=== PATIENT | male | born 1960 | race Caucasian/White ===

== ENCOUNTER 2021-05-31 19:26 | Inpatient (IN) ==
--- NOTE | 2021-05-31 20:09 | Emergency Department Note ---
History of Present Illness General Chief complaint: Dizziness Stated complaint: LIGHT HEADED, OFF BALANCE, DIZZY Time Seen by Provider: 05/31/21 19:46 Source: patient History of Present Illness Provider complaint: Lightheadedness, dizziness and headache Onset (ago): day(s) Location: head Severity: moderate Pain Consistency: + intermittent Maximum Pain Intensity: 4 Quality: + other (Feeling like he is half drunk) Relieved By: + none Associated symptoms: + cough (1 week productive cough), + headaches and + other (Numbness to the left hand); no chest pain, no fever/chills, no nausea/vomiting, no shortness of breath or no weakness This is a 60-year-old male with no significant past medical history presenting with dizziness and headache. The patient states it started while he was at work 3 days ago. He has had intermittent episodes since then. He states he gets a strobe light effect in the left eye. He has a headache on top of his head and then he feels dizzy. He describes his dizziness as feeling half drunk and off balance. He has some slight vertigo with it and he is lightheaded. He states that another episode started today at approximately 12:30 PM. He states his headache is very mild today. He no longer has a strobe light feeling. He does have some numbness to the left hand but no weakness to his extremities. He denies any double vision or loss of vision. He has no trouble swallowing. He denies any chest discomfort or pain, shortness of breath, fever, vomiting, abdominal pain, diarrhea, loss of taste or smell. He does have a productive cough for the past week. He has not been vaccinated for the Covid 19 virus. He does state that he thinks he had it back in [facility] of last year when he felt cold and had fatigue. Home Medications Medication Instructions Recorded Confirmed Type No Known Home Medications 05/31/21 05/31/21 History Allergies Allergy/AdvReac Type Severity Reaction Status Date / Time bee venom protein (honey bee) Allergy Severe Hives Verified 05/31/21 20:01 Past Med/Surg History Medical History (Updated 06/01/21 @ 00:39 by Ajay Roberson MD) No pertinent past medical history Social History (Updated 05/31/21 @ 20:05 by Ajay Roberson MD) Smoking Status: Former smoker Age Quit Using Tobacco: 52; Preferred Language: Sammarinese Feels Safe at Home: Yes Review of Systems See HPI for pertinent positives & negatives. and A total of 10 systems reviewed and were otherwise negative Physical Exam Vital Signs Vital Signs - 24 hr 05/31/21 19:37 05/31/21 19:49 05/31/21 20:04 Temperature 36.4 C L Temperature Source Temporal Artery Scan Pulse Rate 120 H 120 H 118 H Pulse Rate [Right] Pulse Rate from SpO2 Sensor 120 H 118 H Pulse Rhythm [Right] Pulse Strength [Right] Respiratory Rate 18 19 20 Respiratory Effort / Characteristics Respiratory Depth Normal Blood Pressure 165/97 H 166/118 H 167/105 H Blood Pressure [Right Arm] Blood Pressure Mean 119 134 125 Blood Pressure Mean [Right Arm] Blood Pressure Position [Right Arm] Pulse Oximetry 97 95 96 Oxygen Delivery Method Room Air Sepsis Recent Fever Within 48 Hours No Sepsis New/Unexplained Change in Mental Status N/A Sepsis Action Taken by Nursing No Action Required 05/31/21 20:17 05/31/21 23:26 Temperature Temperature Source Pulse Rate 115 H Pulse Rate [Right] 105 H Pulse Rate from SpO2 Sensor 115 H Pulse Rhythm [Right] Regular Pulse Strength [Right] Normal Respiratory Rate 27 H 22 Respiratory Effort / Characteristics Non-Labored Respiratory Depth Normal Blood Pressure 159/101 H Blood Pressure [Right Arm] 159/100 H Blood Pressure Mean 120 Blood Pressure Mean [Right Arm] 119 Blood Pressure Position [Right Arm] Lying Pulse Oximetry 95 95 Oxygen Delivery Method Sepsis Recent Fever Within 48 Hours Sepsis New/Unexplained Change in Mental Status Sepsis Action Taken by Nursing Constitutional: Vital signs reviewed. Eyes: Pupils are equal round reactive to light. Conjunctiva are noninjected. ENT: Pharynx is clear without erythema or exudate. Mucous membranes are moist. Neck supple without meningeal signs. Respiratory: Clear to auscultation bilaterally. Breath sounds are equal bilaterally. Cardiovascular: Tachycardic. Regular rhythm. Heart rate 120. GI: Soft, nondistended and nontender. Bowel sounds are present. Musculoskeletal: No peripheral edema. No lower extremity tenderness. Integumentary: No cyanosis. or jaundice. Neurologic: The patient is awake and alert. Cranial nerves II-XII are intact. Motor is 5 out of 5 all extremities. Sensation is intact to light touch all extremities. Normal speech. No pronator drift. No limb ataxia. No dysdiadoc hokinesis. Ataxic gait. Right lateral nystagmus. Psychiatric: Normal affect. Not anxious appearing. Course Administered Medications Sodium Chloride (Nss) 500 mls @ 125 mls/hr IV .Q4H NELIDA Stop: 06/30/21 22:29 Last Admin: 05/31/21 23:25 Dose: 125 mls/hr Documented by: [id number] Discontinued Medications Ioversol (Optiray 320 125ml) 120 ml IV ONCE ONE Stop: 05/31/21 21:33 Last Admin: 05/31/21 21:32 Dose: 120 ml Documented by: [id number] Medical Decision Making Differential Diagnosis CVA, intracranial mass, complex migraine, metabolic derangement, infection, pneumonia, dysrhythmia, intracranial bleed Medical Records Attestation: I reviewed the patient's medical records. I did perform a limited focused review of portions of the patient's old chart on the electronic medical record. The patient has had no recent pertinent visits to this hospital. Home Medications Current Medication List: was personally reviewed by me Laboratory Data Attestation: I reviewed the patient's lab results. Result diagrams: 05/31/21 20:33 05/31/21 20:33 Lab Results 05/31/21 05/31/21 05/31/21 Range/Units 20:26 20:29 20:29 WBC (4.8-10.8) K/uL RBC (4.7-6.1) M/uL Hgb (14.0-18.0) g/dL Hct (42-52) % MCV (80-100) fL MCH (25-34) pg MCHC (32-36) g/dL RDW Std Deviation (36.4-46.3) fL RDW Coeff of Gely (11.5-14.5) % Plt Count (130-400) K/uL MPV (7.4-10.4) fL Immature Gran % (Auto) % Neut % (Auto) % Lymph % (Auto) % Stewart % (Auto) % Eos % (Auto) % Baso % (Auto) % Neut # (Auto) (1.4-6.5) K/uL Lymph # (Auto) (1.2-3.4) K/uL Stewart # (Auto) (0.11-0.59) K/uL Eos # (Auto) (0-0.5) K/uL Baso # (Auto) (0-0.2) K/uL Immature Gran # (Auto) (0.00-0.02) K/uL PT (9.0-12.0) Seconds INR (0.9-1.1) APTT (21.0-31.0) Seconds PTT Ratio Sodium (136-145) mmol/L Potassium (3.5-5.1) mmol/L Chloride (98-107) mmol/L Carbon Dioxide (21-32) mmol/L Anion Gap (3-11) BUN (7-18) mg/dl Creatinine (0.6-1.4) mg/dl Est Cr Clr Drug Dosing ml/min Est GFR ( Amer) ml/min Est GFR (Non-Af Amer) ml/min BUN/Creatinine Ratio (10-20) Glucose (70-99) mg/dl POC Glucose 322 H* (70-99) mg/dl Calcium (8.5-10.1) mg/dl Magnesium (1.8-2.4) mg/dl Total Bilirubin (0.2-1) mg/dl AST (15-37) U/L ALT (12-78) U/L Alkaline Phosphatase (45-117) U/L Troponin I (0-0.045) ng/ml Total Protein (6.4-8.2) gm/dl Albumin (3.4-5.0) gm/dl Globulin (2.5-4.0) gm/dl Albumin/Globulin Ratio (0.9-2) Beta-Hydroxybutyric Acd (0.2-2.81) mg/dl TSH (0.300-4.500) uIu/ml COVID-19 Eval Order Covid19 at [facility] SARS-CoV-2 (PCR) NEGATIVE (Negative) 05/31/21 05/31/21 05/31/21 Range/Units 20:33 20:33 20:33 WBC 8.96 (4.8-10.8) K/uL RBC 5.27 (4.7-6.1) M/uL Hgb 16.6 (14.0-18.0) g/dL Hct 44.8 (42-52) % MCV 85.0 (80-100) fL MCH 31.5 (25-34) pg MCHC 37.1 H (32-36) g/dL RDW Std Deviation 37.3 (36.4-46.3) fL RDW Coeff of Gely 12.1 (11.5-14.5) % Plt Count 300 (130-400) K/uL MPV 9.7 (7.4-10.4) fL Immature Gran % (Auto) 0.1 % Neut % (Auto) 68.4 % Lymph % (Auto) 22.1 % Stewart % (Auto) 8.4 % Eos % (Auto) 0.7 % Baso % (Auto) 0.3 % Neut # (Auto) 6.13 (1.4-6.5) K/uL Lymph # (Auto) 1.98 (1.2-3.4) K/uL Stewart # (Auto) 0.75 H (0.11-0.59) K/uL Eos # (Auto) 0.06 (0-0.5) K/uL Baso # (Auto) 0.03 (0-0.2) K/uL Immature Gran # (Auto) 0.01 (0.00-0.02) K/uL PT 9.6 (9.0-12.0) Seconds INR 0.9 (0.9-1.1) APTT 23.6 (21.0-31.0) Seconds PTT Ratio 0.9 Sodium 133 L (136-145) mmol/L Potassium 4.3 (3.5-5.1) mmol/L Chloride 100 (98-107) mmol/L Carbon Dioxide 25 (21-32) mmol/L Anion Gap 8.0 (3-11) BUN 15 (7-18) mg/dl Creatinine 0.83 (0.6-1.4) mg/dl Est Cr Clr Drug Dosing 98.5 ml/min Est GFR ( Amer) 111.6 ml/min Est GFR (Non-Af Amer) 96.3 ml/min BUN/Creatinine Ratio 17.7 (10-20) Glucose 304 H* (70-99) mg/dl POC Glucose (70-99) mg/dl Calcium 9.4 (8.5-10.1) mg/dl Magnesium 1.6 L (1.8-2.4) mg/dl Total Bilirubin 0.4 (0.2-1) mg/dl AST 37 (15-37) U/L ALT 39 (12-78) U/L Alkaline Phosphatase 82 (45-117) U/L Troponin I < 0.015 (0-0.045) ng/ml Total Protein 7.7 (6.4-8.2) gm/dl Albumin 3.9 (3.4-5.0) gm/dl Globulin 3.8 (2.5-4.0) gm/dl Albumin/Globulin Ratio 1.0 (0.9-2) Beta-Hydroxybutyric Acd (0.2-2.81) mg/dl TSH 2.240 (0.300-4.500) uIu/ml COVID-19 Eval Order SARS-CoV-2 (PCR) (Negative) 05/31/21 Range/Units 22:33 WBC (4.8-10.8) K/uL RBC (4.7-6.1) M/uL Hgb (14.0-18.0) g/dL Hct (42-52) % MCV (80-100) fL MCH (25-34) pg MCHC (32-36) g/dL RDW Std Deviation (36.4-46.3) fL RDW Coeff of Gely (11.5-14.5) % Plt Count (130-400) K/uL MPV (7.4-10.4) fL Immature Gran % (Auto) % Neut % (Auto) % Lymph % (Auto) % Stewart % (Auto) % Eos % (Auto) % Baso % (Auto) % Neut # (Auto) (1.4-6.5) K/uL Lymph # (Auto) (1.2-3.4) K/uL Stewart # (Auto) (0.11-0.59) K/uL Eos # (Auto) (0-0.5) K/uL Baso # (Auto) (0-0.2) K/uL Immature Gran # (Auto) (0.00-0.02) K/uL PT (9.0-12.0) Seconds INR (0.9-1.1) APTT (21.0-31.0) Seconds PTT Ratio Sodium (136-145) mmol/L Potassium (3.5-5.1) mmol/L Chloride (98-107) mmol/L Carbon Dioxide (21-32) mmol/L Anion Gap (3-11) BUN (7-18) mg/dl Creatinine (0.6-1.4) mg/dl Est Cr Clr Drug Dosing ml/min Est GFR ( Amer) ml/min Est GFR (Non-Af Amer) ml/min BUN/Creatinine Ratio (10-20) Glucose (70-99) mg/dl POC Glucose (70-99) mg/dl Calcium (8.5-10.1) mg/dl Magnesium (1.8-2.4) mg/dl Total Bilirubin (0.2-1) mg/dl AST (15-37) U/L ALT (12-78) U/L Alkaline Phosphatase (45-117) U/L Troponin I (0-0.045) ng/ml Total Protein (6.4-8.2) gm/dl Albumin (3.4-5.0) gm/dl Globulin (2.5-4.0) gm/dl Albumin/Globulin Ratio (0.9-2) Beta-Hydroxybutyric Acd 12.12 H (0.2-2.81) mg/dl TSH (0.300-4.500) uIu/ml COVID-19 Eval Order SARS-CoV-2 (PCR) (Negative) Imaging Data Attestation: I personally reviewed and interpreted this imaging study as follows: My Impression: Chest x-ray per my interpretation shows no acute cardiopulmonary process. Radiologist's Impression: Patient: AUTUMN OLIVO (Male) : 62 Status: ER Date: 05/31/21 21:48 Room #: History: stroke like symptoms/dizzy/off balance Slices: 59 Priors: Tech: AngelinaCecilt @ [id number] Exams: CT HEAD Contrast: Accession Numbers: [id number] Referring Physician: REFERRED SELF Preliminary Findings Only See Final Report For Complete Findings CT HEAD: No intracranial hemorrhage, mass-effect or midline shift. No abnormal extra axial fluid collection. No evidence of acute infarct. Mild periventricular white matter hypodensities are most consistent with chronic micro angiopathy. The visualized paranasal sinuses and mastoid air cells are clear. No fracture. Radiologist: Radha Gaston MD Study ready at 21:52 and initial results transmitted at 22:07 Patient: AUTUMN OLIVO (Male) : 62 Status: ER Date: 05/31/21 21:49 Room #: History: stroke like symptoms/dizzy/off balance Slices: 632 Priors: Tech: Umair Alfaro @ [id number] Exams: CTA HEAD Contrast: IV Amt: 120 Accession Numbers: [id number] Referring Physician: REFERRED SELF Preliminary Findings Only See Final Report For Complete Findings CTA HEAD: Approximate 50% stenosis of the supraclinoid right ICA. Approximately 50% stenosis of proximal basilar artery. No occlusion, aneurysm or dissection. Incidentally noted origin of the right D[employer]ING [employer]ER, normal variant. The right vertebral artery terminates in pica. Radiologist: Radha Gaston MD Study ready at 21:52 and initial results transmitted at 22:13 Preliminary Findings Only See Final Report For Complete Findings CTA NECK: Approximately 40% stenosis of the left carotid bulb. No occlusion, aneurysm or dissection. Radiologist: Radha Gaston MD Study ready at 21:52 and initial results transmitted at 22:17 ECG Data Attestation: I personally reviewed and interpreted this ECG as follows: Indication: + other (Dizziness) Rate (beats per minute): 113 Rhythm: + sinus tachycardia ECG Novi: + Normal ECG ST segments: no ST elevation ECG Findings: no PVCs MDM Narrative I did evaluate the patient as noted above. The patient is presenting with dizziness starting 3 days ago. He has also had a stroke effect in his left eye only. He is having some difficulty walking with it. On exam he is neurologically intact except for an ataxic gait. IV access was established. I did place an order for continuous cardiac monitoring. The monitor showed sinus tachycardia at a rate of 122 bpm. I did order and personally review the patient's 12-lead EKG as described above. He has sinus tachycardia without acut e ischemia. I did order and personally reviewed the images of the patient's chest x-ray as described above. There is no evidence of infiltrate. I did order a urine analysis. I did order and review the patient's blood work as noted in the electronic medical record. CBC is unremarkable. He does not have leukocytosis or anemia. Electrolytes demonstrates a pseudohyponatremia from a glucose of 304. Magnesium is 1.6. I did treat him with normal saline IV. I did order a CT of the head and CT angiogram of the head neck. I did review the images myself as well as the radiology report as described above. There is no evidence of acute intracranial abnormality. He does have stenosis of the ICA, basilar artery and carotid bulb. I did discuss the testicles with the patient. I did recommend that he be hospitalized for further care and evaluation as well as MRI of the brain. He was agreeable. I did discuss the case with the hospitalist and rn case manager hospice. His tachycardia did improve. Impression & Plan Ataxia, Acute hyperglycemia, Tachycardia, Vision abnormalities Discharge Plan Visit Data Chief Complaint: Dizziness Stated Complaint: LIGHT HEADED, OFF BALANCE, DIZZY ED Provider: Ajay Roberson Discharge Problem: Ataxia, Acute hyperglycemia, Tachycardia, Vision abnormalities Patient Disposition: Being Evaluated by Hospitalist Discharge Instructions Interventions: ED Discharge Assessment Last Done: 06/01/21 00:35 Forms Stand Alone Forms: My [employer] Prescriptions Prescriptions: No Action No Known Home Medications RF: 0 Referrals Referrals: PCP,NO [Primary Care Provider] -
[2021-05-31 20:43] LABS: Basophils # (auto) 0.03 K/uL (0-0.2); Basophils % (auto) 0.3 %; Eosinophils # (auto) 0.06 K/uL (0-0.5); Eosinophils % (auto) 0.7 %; Hematocrit (blood only) 44.8 % (42-52); Hemoglobin 16.6 g/dL (14.0-18.0); Immature Granulocytes # (auto) 0.01 K/uL (0.00-0.02); Immature Granulocytes % (auto) 0.1 %; Lymphocytes # (auto) 1.98 K/uL (1.2-3.4); Lymphocytes % (auto) 22.1 %; Mean Corpuscular Hemoglobin 31.5 pg (25-34); Mean Corpuscular Hgb Conc 37.1 g/dL (32-36); Mean Platelet Volume 9.7 fL (7.4-10.4); Monocytes # (auto) 0.75 K/uL (0.11-0.59); Monocytes % (auto) 8.4 %; Neutrophils # (auto) 6.13 K/uL (1.4-6.5); Neutrophils % (auto) 68.4 %; Platelet Count 300 K/uL (130-400); RDW Coefficient of Variation 12.1 % (11.5-14.5); RDW Standard Deviation 37.3 fL (36.4-46.3); Red Blood Count 5.27 M/uL (4.7-6.1); White Blood Count 8.96 K/uL (4.8-10.8)
[2021-05-31 20:53] LABS: INR 0.9 (0.9-1.1); Partial Thromboplastin Ratio 0.9; Partial Thromboplastin Time 23.6 Seconds (21.0-31.0); Prothrombin Time 9.6 Seconds (9.0-12.0)
[2021-05-31 21:17] LABS: Alanine Aminotransferase 39 U/L (12-78); Albumin Level 3.9 gm/dl (3.4-5.0); Aspartate Aminotransferase 37 U/L (15-37); BUN Creatinine Ratio 17.7 (10-20); Blood Urea Nitrogen 15 mg/dl (7-18); Calcium 9.4 mg/dl (8.5-10.1); Carbon Dioxide 25 mmol/L (21-32); Chloride 100 mmol/L (98-107); Creatinine Clr Calc Pharmacy 98.5 ml/min; Est GFR (African American) 111.6 ml/min; Est GFR (Non-African American) 96.3 ml/min; Glucose 304 mg/dl (70-99); Magnesium 1.6 mg/dl (1.8-2.4); Potassium 4.3 mmol/L (3.5-5.1); Sodium 133 mmol/L (136-145)
[2021-05-31 21:21] LABS: Alkaline Phosphatase 82 U/L (45-117); Bilirubin,Total 0.4 mg/dl (0.2-1); Globulin 3.8 gm/dl (2.5-4.0); Total Protein 7.7 gm/dl (6.4-8.2); Troponin I < 0.015 ng/ml (0-0.045)
[2021-05-31] MEDS ORDERED: OPTIRAY 320 125ml IV ONE (21:32)
[2021-05-31] MEDS ORDERED: SODIUM CHLORIDE 0.9% 500 ML IV SCH (22:30)
[2021-06-01] MEDS ORDERED: NovoLIN-R INSULIN PER UNIT CHARGE IV STA (00:10)
[2021-06-01] MEDS ORDERED: NITROGLYCERIN SL 0.4 MG/TAB TAB SL PRN (00:56)
[2021-06-01] MEDS ORDERED: POLYETHYLENE (MIRALAX) 17 GM PACK PO PRN (00:56)
[2021-06-01] MEDS ORDERED: PHARMACIST DISCHARGE MED REC CONSULT PRN (00:56)
[2021-06-01] MEDS ORDERED: SODIUM CHLORIDE 0.9% 1000ML 1,000 ML IV SCH (00:56)
[2021-06-01] MEDS ORDERED: LABETALOL HCL IV 5 MG/ML 20ML IV PRN (00:56)
[2021-06-01] MEDS ORDERED: ONDANSETRON INJ 2 MG/ML 2 ML VIAL IV PRN (00:56)
[2021-06-01] MEDS ORDERED: ACETAMINOPHEN 325 MG TAB PO PRN (00:56)
[2021-06-01] MEDS ORDERED: INSULIN HUMAN REGULAR PER UNIT 4 UNITS in SYRINGE 3.96 ML IV ONE (01:15)
--- NOTE | 2021-06-01 01:56 | History and Physical Report ---
DATE OF ADMISSION: 05/31/2021. CHIEF COMPLAINT: Dizziness and flashes in the left eye. HISTORY OF PRESENT ILLNESS: This is a 60-year-old male with no significant past medical history, did not see doctors for a long time, who lives alone, presents with ongoing dizziness and also light flashing in his left eye. He says he was disoriented, dizzy on and his boss has to send him home, and yesterday afternoon for a couple of hours, he felt like light flashing in his left eye and again happened that episode for sometime today too.Since some time today he also feeling little imbalance and dizziness, thus prompted him to come to the ER. Currently, resting comfortably, hemodynamically stable. Denies any headache, denies any blurred visions or double visions, no earache, no runny nose, no sore throat. Has occasional cough since last 1 week, attributes it to his allergies. Appetite is okay. He is swallowing okay. No chest pain, no shortness of breath, no cough, no abdominal pain, normal bowel and bladder movements. Did not see bloody stools or black stools. No hematuria or burning micturition, no swelling in the legs, no rash.Didn't had Covid vaccine. ALLERGIES: BEE VENOM. PAST MEDICAL HISTORY: None. PAST SURGICAL HISTORY: Tonsils and adenoidectomy. MEDICATIONS: Not taking any medications. FAMILY HISTORY: Significant for father had heart disease and mother had leukemia. SOCIAL HISTORY: Quit smoking in 2012, he states he smoked 1 pack a day for 10 years. Did not drink alcohol for last 10 years. Denies any drug use. REVIEW OF SYSTEMS: As per HPI. Rest of the review of systems is negative. PHYSICAL EXAMINATION: GENERAL: The patient is obese, not in acute distress. VITAL SIGNS: Temperature 36.4, pulse 105, respiratory rate 22, blood pressure 159/100, oxygen 95% on room air. HEENT: Pupils equal, round and reactive to light. Extraocular muscles intact. Oral mucosa moist. NECK: No JVD or neck masses. HEART: S1 and S2 heard. Regular rate and rhythm. No murmur, no gallop. RESPIRATORY SYSTEM: Normal AP diameter. No accessory muscle use. No wheezing, no crackles. ABDOMEN: Soft, bowel sounds present, nontender, no distention. CENTRAL NERVOUS SYSTEM: Cranial nerves II-XII grossly intact. No facial droop. Speech is clear. Power 5/5 in all extremities. Sensation is intact. Coordination of movements normal. No pronator drift. Gait is okay. EXTREMITIES: No edema, no erythema. LABORATORY DATA: WBC 8.9, hemoglobin 16.6, hematocrit 44.8, platelets 300. PT 9.6, INR 0.9, APTT 23.6. Sodium 133, potassium 4.3, chloride 100, bicarbonate 25, BUN 15, creatinine 0.8, serum glucose 304, calcium 9.4, magnesium 1.6, total bilirubin 0.4, AST 37, ALT 39, alkaline phosphatase 82. Troponin I less than 0.015. Beta-hydroxybutyric acid 12.2. TSH is 2.4. SARS-CoV-2 PCR negative. IMAGING DATA: Chest x-ray, no acute findings. CT of the head on the preliminary report no acute findings. CTA of the head in the preliminary report, approximately 50% stenosis of the supraclinoid right ICA, approximately 50% stenosis of the proximal basilar artery, no occlusion, aneurysm, or dissection. CTA of the neck approximately 40% stenosis of the left carotid bulb. No occlusion, aneurysm, or dissection. EKG: Sinus tachycardia at a rate of 113. No previous ECGs available. ASSESSMENT AND PLAN: This is a 60-year-old male who presents with stroke like symptoms. 1. Stroke like symptoms with flashing of lights in his left eye intermittently since yesterday had some dizziness and imbalance. Initial workup is unremarkable except for some 50% stenosis of the right ICA and proximal basilar artery and 40% stenosis of the left carotid bulb. Will start on aspirin. We will do a full stroke workup with MRI scan, echocardiogram. Monitor in the tele floor. PT, OT and neurology evaluation in a.m. and Speech consult in a.m. 2. Hypertension: The patient did not see a doctor for a long time, we will place him on IV labetalol p.r.n., allow permissive hypertension for now until MRI scan is back. The patient may need to be on antihypertensive at time of discharge. We will also follow lipid profile. 3. Diabetes. Sugars are running. Not on any medications at home, did not go to a doctor for a long time. We will follow HbA1c levels. Place on Lantus insulin sliding scale for now. 4. Hypomagnesemia. We will replace. 5. Deep venous thrombosis prophylaxis. Sequential compression devices for now. DISPOSITION: Closely monitor in the med tele. PT/OT prior to discharge. Social service to help with discharge planning. Job ID: [id number] [id number]
[2021-06-01] MEDS ORDERED: GADOBUTROL 10ML VIAL IV ONE (02:31)
[2021-06-01] MEDS: MAGNESIUM SULFATE / D5W 1 GM/100 ML BAG IV SCH ×2 (02:46→04:46)
[2021-06-01] MEDS ORDERED: INSULIN ASPART 100 UNITS/ML 3 ML PEN SC ONE (03:08)
--- NOTE | 2021-06-01 07:09 | CT Scan Report ---
CT head/brain wo con CLINICAL HISTORY: 60 years-old Male with ataxia eval for stroke. Acute strokelike symptoms TECHNIQUE: Multiple axial CT images of the head were obtained without contrast. A dose lowering tech nique was utilized adhering to the principles of ALARA. CT DOSE: 1144.91 mGy.cm COMPARISON: CTA had and neck] MRI of same day FINDINGS: No acute intracranial hemorrhage, midline shift, intracranial mass, hydrocephalus, territorial ischem ia or abnormal extra-axial collection. Minimal white matter hypodensities may reflect chronic microva scular ischemic disease. The calvarium is intact. The paranasal sinuses, mastoid air cells, and middle ear cavities are clear . IMPRESSION: 1. No acute intracranial abnormality. 2. No acute or subacute infarct identified by CT. ACT 112: Negative or not required by law. The above report was generated using voice recognition software. It may contain grammatical, syntax o r spelling errors. Electronically signed by: Troy Melgar M.D. 06/01/2021 7:08 AM
[2021-06-01 07:43] LABS: Basophils # (auto) 0.03 K/uL (0-0.2); Basophils % (auto) 0.4 %; Eosinophils # (auto) 0.13 K/uL (0-0.5); Eosinophils % (auto) 1.5 %; Hematocrit (blood only) 42.2 % (42-52); Hemoglobin 15.4 g/dL (14.0-18.0); Immature Granulocytes # (auto) 0.01 K/uL (0.00-0.02); Immature Granulocytes % (auto) 0.1 %; Lymphocytes # (auto) 2.91 K/uL (1.2-3.4); Lymphocytes % (auto) 34.6 %; Mean Corpuscular Hemoglobin 31.3 pg (25-34); Mean Corpuscular Hgb Conc 36.5 g/dL (32-36); Mean Corpuscular Volume 85.8 fL (80-100); Mean Platelet Volume 9.6 fL (7.4-10.4); Monocytes # (auto) 0.63 K/uL (0.11-0.59); Monocytes % (auto) 7.5 %; Neutrophils # (auto) 4.71 K/uL (1.4-6.5); Neutrophils % (auto) 55.9 %; Platelet Count 277 K/uL (130-400); RDW Coefficient of Variation 12.2 % (11.5-14.5); RDW Standard Deviation 38.2 fL (36.4-46.3); Red Blood Count 4.92 M/uL (4.7-6.1); White Blood Count 8.42 K/uL (4.8-10.8)
[2021-06-01 07:56] LABS: Estimated Average Glucose 332 mg/dl; Hemoglobin A1C 13.2 % (4.5-5.6)
[2021-06-01] MEDS: ASPIRIN 81 MG ECTAB PO SCH (08:06)
[2021-06-01] MEDS: INSULIN ASPART 100 UNITS/ML 3 ML PEN SC SCH ×4 (08:06→21:12)
[2021-06-01 08:08] LABS: BUN Creatinine Ratio 17.7 (10-20); Calcium 8.8 mg/dl (8.5-10.1); Creatinine Clr Calc Pharmacy 121.4 ml/min; Est GFR (African American) 121.9 ml/min; Est GFR (Non-African American) 105.2 ml/min; Potassium 3.5 mmol/L (3.5-5.1)
--- NOTE | 2021-06-01 08:09 | CT Scan Report ---
CT angio head w con CLINICAL HISTORY: 60 years-old Male with Stroke Like Symptoms. Acute strokelike symptoms COMPARISON STUDY: CTA neck] MRI studies of same day TECHNIQUE: Following the IV administration of 120 cc of Optiray, CT angiogram of the brain was perfor med from the skull base to the vertex. Images are reviewed in the axial, sagittal, and coronal planes . 3-D MIPS images are created and assessed. IV contrast was administered without complication. All me asurements were obtained according to NASCET criteria. A dose lowering technique was utilized adherin g to the principles of ALARA. FINDINGS: Atherosclerosis of the distal internal carotid arteries results in approximately 50% luminal narrowin g of the super clinoid right ICA and mild stenosis of the supraclinoid left ICA. The bilateral middle and anterior cerebral arteries are patent. Dominant left vertebral artery. The imaged distal right v ertebral artery is diminutive in size. Long segment luminal narrowing of the proximal and mid basilar artery measures up to approximately 60%. origin of the right posterior cerebral artery. The po sterior cerebral arteries are patent. Cerebral venous sinuses are patent. No aneurysm, dissection, hi gh-grade stenosis or arterial occlusion. There is no abnormal intracranial enhancement. A small acute infarcts of the right cerebral hemispher e seen on the brain MRI are same day are not appreciable by CT technique. No calvarial fracture. Poly poid mucosal thickening of the right greater than left maxillary sinuses. Mastoid air cells are clear . IMPRESSION: 1. 60% luminal narrowing of the proximal to mid basilar artery. 2. Atherosclerosis of the supraclinoid segments of the internal carotid arteries bilaterally results in approximately 50% stenosis on the right. 3. No aneurysm, dissection or arterial occlusion. ACT 112: Negative or not required by law. The above report was generated using voice recognition software. It may contain grammatical, syntax o r spelling errors. Electronically signed by: Troy Melgar M.D. 06/01/2021 8:07 AM
--- NOTE | 2021-06-01 08:14 | CT Scan Report ---
CT angio neck with con CLINICAL HISTORY: Stroke Like Symptoms COMPARISON STUDY: No previous studies for comparison. TECHNIQUE: CT angiography was performed from the aortic arch to the skull base. MIP imaging was perfo rmed. The patient was scanned in a dynamic helical fashion during intravenous administration of 120 c c of Optiray. A dose lowering technique was utilized adhering to the principles of ALARA. CT DOSE: Technique: CT angiogram of the carotid and vertebral arteries was obtained using intravenous contrast and 3-D reconstruction. NASCET criteria was utilized. Findings: Partial calcified plaques is seen within bilateral carotid bulbs without significant stenosis. Partially calcified plaque is seen within cavernosal portion of the right internal carotid artery wit h approximately 50% stenosis (6/374). Also there is luminal irregularity and 50-69% stenosis of the c avernous portion of the right internal carotid artery (6-378 and 600/23). Partial calcified plaques are seen within cavernosal portion of the left internal carotid artery with approximately 50% stenosis (6/380). There is left predominant vertebral flow. Left vertebral artery is patent without hemodynamically sig nificant stenosis. Diffuse narrowing of the right vertebral artery is seen. No definite focal occlusion is demonstrated. No dissection is seen. Limited evaluation of lung apices shows no infiltrates or consolidative lesions. Prominent azygos lob e is seen. Incidental findings of patulous esophagus with mild diffuse thickening of its wall. IMPRESSION: 1. Atherosclerotic involvement of the bilateral internal carotid arteries with above 50% stenosis wi thin cavernosal portion of the right internal carotid artery. Report will be sent to the emergency [place] [facility]. 2. Left predominant vertebral circulation. Diffuse narrowing of the right vertebral artery without d efinite occlusion. 3. Mild prominence of esophageal wall. Please correlate above-mentioned findings with clinical prese ntation and prior history of esophageal abnormalities. ACT 112: Negative or not required by law. The above report was generated using voice recognition software. It may contain grammatical, syntax o r spelling errors. Electronically signed by: Nereyda Juárez DO 06/01/2021 8:13 AM
--- NOTE | 2021-06-01 08:17 | XRay Report ---
XR chest 1V portable HISTORY: 60 years-old Male Stroke Like Symptoms acute strokelike symptoms COMPARISON: None TECHNIQUE: Portable AP view of the chest FINDINGS: Cardiac mediastinal and hilar silhouettes are within normal limits. Suggested azygos lobe and fissure . No pneumothorax, pleural effusion, airspace consolidation or overt pulmonary edema. Bones of the ch est appear grossly intact. IMPRESSION: No acute process. ACT 112: Negative or not required by law. The above report was generated using voice recognition software. It may contain grammatical, syntax o r spelling errors. Electronically signed by: Troy Melgar M.D. 06/01/2021 8:16 AM
[2021-06-01] MEDS ORDERED: PHARMACY GLYCEMIC MGMT CONSULT PRN (08:28)
[2021-06-01] MEDS ORDERED: INSULIN GLARGINE SOLOSTAR 100 UNITS/ML 3 ML PEN SC SCH (09:00)
[2021-06-01] MEDS ORDERED: INSULIN GLARGINE SOLOSTAR 100 UNITS/ML 3 ML PEN SC ONE ×2 (09:30→21:00)
--- NOTE | 2021-06-01 09:37 | Pharmacy Report ---
Pharmacy Glycemic Short Note 2 - Date of Service June 01, 2021 - Glycemic Short BSG Results (Last 24 hours): 05/31/21 05/31/21 06/01/21 20:26 20:33 03:01 Glucose 304 H* POC Glucose 322 H* 228 H 06/01/21 06/01/21 06:44 07:29 Glucose 251 H POC Glucose 238 H OUTPATIENT ANTIDIABETIC REGIMEN: * n/a * A1c = 13.2% on 06/01/21 ASSESSMENT: * 60yo male with new diagnosis of DMT2 per A1c > 6.5% * Since A1c > 10% patient will need to dc on insulin * Sustained hyperglycemia overnight secondary to new diabetes diagnosis. Will initiate moderate stress weight based SQ basal bolus insulin regimen and titrate based on BSG trends. PLAN FOR INPATIENT GLYCEMIC CONTROL: * Basal insulin * Lantus 25 units (0.3 units/kg) SQ x 1 dose this AM then titrate to achieve goal AM fasting BSG <130 mg/dl * Will try to keep basal insulin dosing once daily to transition to outpatient once daily dosing * Bolus insulin * NovoLog per scale ACHS or Q6hrs while NPO * Goal Range: Low 110 mg/dL - High 140 mg/dL * Correction Factor: 25 mg/dL/unit * Nutritional / Prandial insulin per carb ratio of 1 unit per 7 grams CHO consumed PLAN FOR DISCHARGE: * A1c = 13.2 % on 05/30/21 * Goal A1c = <7 % based on age and comorbidities * A1c is greater than or equal to 10% --> consider triple therapy with metformin + basal insulin + (GLP1-RA OR prandial insulin). May need to continue additional antidiabetic agent based on patient specific factors (efficacy, hypo risk, weight gain/loss, side effects, cost) * Metformin should be started at the time type 2 diabetes is diagnosed unless there are contraindications. Metformin is effective and safe, is inexpensive, and may reduce risk of cardiovascular events and . * B12 supplementation may be necessary with usp metformin use * Recommend starting: Metformin XR 500mg PO daily with evening meal. Typically the XR formulation of metformin is better tolerated than the immediate release formulation. Continue to titrate metformin dosing upwards as recommended. Dosage increases should be made in increments of 500 mg weekly, up to 2,000 mg/day PO, given in divided doses. Doses above 2000 mg/day may be better tolerated if divided and given 3 times per day with meals. Max: 2,550 mg/day PO, in divided doses * Basal insulin: Formulation TBD based on insurance coverage; dosing TBD based on inpatient needs AND GPL1RA: This will be based off of insurance coverage and patient preference of weekly vs daily injection OR Prandial insulin + Correctional insulin: Formulation TBD based on insurance coverage; dosing TBD based on inpatient needs
[2021-06-01] MEDS: ATORVASTATIN 40 MG TAB PO SCH (09:49)
--- NOTE | 2021-06-01 10:33 | Magnetic Resonance Report ---
MRI OF THE BRAIN WITHOUT AND WITH IV CONTRAST CLINICAL HISTORY: stroke like symptoms COMPARISON STUDY: No previous studies for comparison. TECHNIQUE: MRI of the brain was performed from the vertex to the skull base utilizing various T1 and T2 weighted sequences. Following the IV administration of mL of Gadavist contrast, additional enhance d images were obtained. FINDINGS: Sagittal T1, axial diffusion, proton density and T2 weighted axial, coronal FLAIR, and pre and post a xial T1-weighted images were acquired. These were supplemented with post gadolinium coronal T1 weight ed images. No intra or extra-axial mass lesions are visualized. Multiple punctate areas of restricted diffusion within periventricular and subcortical white matter a s well as cortex of the right occipital and parietal lobe are seen, some of this areas shows increase d T2 FLAIR signal and no evidence of abnormal enhancement. Mild dilatation of the ventricles are seen without significant parenchymal atrophy and might represen t hydrocephalus. Proton density T2-weighted and FLAIR images reveal scattered foci of increased T2 signal within the w millicent matter, likely on a small vessel basis. There are no abnormal flow voids. IMPRESSION: 1. Multiple punctate foci of restricted diffusion within right parietal and occipital lobes also sh ows high T2 FLAIR signal and no evidence of enhancement after intravenous contrast administration. D ifferential diagnosis include embolic phenomena. Neoplastic etiology is less likely. Please correlate above-mentioned findings with history of cardiac/vascular abnormality and atherosclerosis. Findings will be sent to the patient's unit. 2. Prominence of bilateral ventricles is seen without significant parenchymal atrophy which might be representing hydrocephalus. ACT 112: Negative or not required by law. The above report was generated using voice recognition software. It may contain grammatical, syntax o r spelling errors. Electronically signed by: Nereyda Juárez DO 06/01/2021 10:31 AM
--- NOTE | 2021-06-01 12:09 | Neurology Consultation ---
Date of Consultation June 01, 2021 Assessment & Plan (1) CVA (cerebral vascular accident): 1. MRI -acute embolic infarcts 2. start plavix 75 mg and aspirin 81 mg daily x 21 days then aspirin 81 mg for life 3. CTA head and neck with narrowing and plaques 4. optimize HTN, HLD, DM LDL <70 5. PT/OT for discharge needs 6. continue heart monitor if no irregular heart rate will need ZIO as outpt 7. needs PCP for further medical management (2) Ataxia: PT/OT for discharge needs (3) Vision abnormalities: 1. ophthalmology follow up as an outpatient Supervising Physician Co-Signing Physician Notes I have seen and discussed above patient with Dr Johnny Dallas, neurology I have seen and examined this man discussed his case with Lucy Whitley. He has minimal findings on exam and several small presumptive embolic infarcts involving the right hemisphere with minimal bilateral carotid disease and a basilar artery stenosis that is also marginally significant and certainly would not produce this picture He is clearly an untreated diabetic and one wonders if he does not have episodic atrial fibrillation based on his history of palpitations Currently we are recommending aspirin and Plavix and an outpatient Zio patch and will follow him up in neurology in 3 to 4 weeks at which point we will probably drop one of the 2 antiplatelet agents and hopefully have time to review the Zio patch indeed gets ordered and processed For now however I would think he is going need rehabilitation efforts for extended rehabilitation stay He does need his metabolic issues addressed and his other vascular risk factors addressed and ideally should be on lipid-lowering agents have his glucose managed and may need some antihypertensive depending on things and out after observing him here Johnny Dallas MD History of Present Illness Reason for Consultation: stroke like symptoms Requesting Physician: Jesus Palomares MD Attending Physician: Jesus Palomares MD History of Present Illness Cristopher is a 60 year old male with no significant PMH and has not seen doctors for years and lives alone. He presented to [facility] 05/31/2021 for ongoing dizziness and also light flashing in his left eye. He had some dizziness at work and his boss sent him home then he had light flashing in his left eye x 2 occasional and some feeling of little imbalance and dizziness. Allergies Allergy/AdvReac Type Severity Reaction Status Date / Time bee venom protein (honey bee) Allergy Severe Hives Verified 05/31/21 20:01 Home Medications Medication Instructions Recorded Confirmed Type No Known Home Medications 05/31/21 05/31/21 History Patient History Medical History (Updated 06/01/21 @ 12:32 by Jesus Palomares MD) CVA (cerebral vascular accident) No pertinent past medical history Social History (Updated 05/31/21 @ 20:05 by Ajay Roberson MD) Smoking Status: Former smoker Age Quit Using Tobacco: 52; Second Hand Exposure: No; Do You Dip or Chew Tobacco: No; Tobacco Cessation Education Requested by Patient: No Hx Alcohol Use: No Hx Substance Use: No Preferred Language: British Communication Ability: Effective Beliefs That Will Affect Care: None marital status: Single Current Living Situation: Alone Other Information That Helps Us Care for You: No Feels Safe at Home: Yes Safety Concerns: Feels Safe At This Time Assistive Devices: Glasses Review of Systems Review of Systems: According to the patient he is generally felt well with the exception of the events that brought him into the hospital i.e. the vertigo and the flashing of the lights in his vision on the left. He denies any other issues except for headache that is been going on for perhaps a week and he has never had these before and specifically denies migraine activity Had no systemic complaints such as fever sweats or chills he denies any specific new issues referable to the HEENT other than a flashing lights in the vague imbalance which really is not vertigo and does admit to some occasional palpitations but otherwise no cardiovascular issues does not have any pulmonary problems gastrointestinal issues genitourinary dysfunction significant musculoskeletal disease or known endocrine issues Physical Exam Physical Exam: Neurologically he is awake alert oriented a little invasive is a historian and has difficulty describing his symptoms particularly the visual symptoms which I suspect were binocular but he feels were only in the left eye. Cranial nerves are normal with the exception of a very subtle left facial asymmetry and his speech is clear his visual lux are full his eye movements are normal tongue protrudes in midline Gait station coordination is hampered by the fact he has more onto an IV pole but he tends to hold his left arm flexed at the elbow but later when sitting in the bed and distracted he gesticulates with a normal fashion and I do not see any tremor tics choreiform activity drift or pronation Reflexes are all present somewhat hypoactive toes are downgoing no Josue signs are seen Strength testing is normal Sensation is intact to vibration light touch and temperature I do not hear any bruits over the carotids pulse feels regular and I do not hear a cardiac murmur Results & Data ([facility]) Vital Signs (Past 12 Hours) Vital Signs Temp Pulse Pulse Resp BP Pulse Ox Pulse Ox 06/01/21 11:10 36.9 C 96 H 20 130/84 92 06/01/21 07:54 36.7 C 87 20 138/85 96 06/01/21 07:42 82 06/01/21 03:28 104 H 06/01/21 02:57 36.8 C 105 H 18 143/64 H 93 06/01/21 02:11 37 C 102 H 18 157/102 H 91 06/01/21 00:56 91 Laboratory Results Abnormal lab results 05/31/21 05/31/21 05/31/21 Range/Units 20:26 20:33 20:33 MCHC 37.1 H (32-36) g/dL [place] # (Auto) 0.75 H (0.11-0.59) K/uL Sodium 133 L (136-145) mmol/L Glucose 304 H* (70-99) mg/dl POC Glucose 322 H* (70-99) mg/dl Hemoglobin A1c (4.5-5.6) % Magnesium 1.6 L (1.8-2.4) mg/dl Triglycerides (0-150) mg/dl Cholesterol (0-200) mg/dl Beta-Hydroxybutyric Acd (0.2-2.81) mg/dl 05/31/21 06/01/21 06/01/21 Range/Units 22:33 03:01 06:44 MCHC 36.5 H (32-36) g/dL [place] # (Auto) 0.63 H (0.11-0.59) K/uL Sodium (136-145) mmol/L Glucose (70-99) mg/dl POC Glucose 228 H (70-99) mg/dl Hemoglobin A1c (4.5-5.6) % Magnesium (1.8-2.4) mg/dl Triglycerides (0-150) mg/dl Cholesterol (0-200) mg/dl Beta-Hydroxybutyric Acd 12.12 H (0.2-2.81) mg/dl 06/01/21 06/01/21 06/01/21 Range/Units 06:44 06:44 07:29 MCHC (32-36) g/dL [place] # (Auto) (0.11-0.59) K/uL Sodium 134 L (136-145) mmol/L Glucose 251 H (70-99) mg/dl POC Glucose 238 H (70-99) mg/dl Hemoglobin A1c 13.2 H (4.5-5.6) % Magnesium (1.8-2.4) mg/dl Triglycerides 239 H (0-150) mg/dl Cholesterol 287 H (0-200) mg/dl Beta-Hydroxybutyric Acd (0.2-2.81) mg/dl 06/01/21 Range/Units 11:31 MCHC (32-36) g/dL [place] # (Auto) (0.11-0.59) K/uL Sodium (136-145) mmol/L Glucose (70-99) mg/dl POC Glucose 245 H (70-99) mg/dl Hemoglobin A1c (4.5-5.6) % Magnesium (1.8-2.4) mg/dl Triglycerides (0-150) mg/dl Cholesterol (0-200) mg/dl Beta-Hydroxybutyric Acd (0.2-2.81) mg/dl Diagnostic Findings CT head- no acute findings CTA head- 60% luminal narrowing of the proximal to mid basilar artery. Atherosclerosis of the supraclinoid segments of the internal carotid arteries bilaterally results in approximately 50% stenosis on the right. No aneurysm, dissection or arterial occlusion. CTA neck-Atherosclerotic involvement of the bilateral internal carotid arteries with above 50% stenosis within cavernosal portion of the right internal carotid artery. Left predominant vertebral circulation. Diffuse narrowing of the right vertebral artery without definite occlusion. Mild prominence of esophageal wall. Please correlate above-mentioned findings with clinical presentation and prior history of esophageal abnormalities. MRI brain- Multiple punctate foci of restricted diffusion within right parietal and occipital lobes also shows high T2 FLAIR signal and no evidence of enhancement after intravenous contrast administration. Differential diagnosis include embolic phenomena. Neoplastic etiology is less likely. Please correlate above-mentioned findings with history of cardiac/vascular abnormality and atherosclerosis. Prominence of bilateral ventricles is seen without significant parenchymal atrophy which might be representing hydrocephalus.
--- NOTE | 2021-06-01 12:29 | Hospitalist Progress Note ---
Date of Service June 01, 2021 Assessment & Plan (1) Stroke-like symptoms: Plan: ASSESSMENT AND PLAN: This is a 60-year-old male who presents with stroke like symptoms. 1. Stroke like symptoms with flashing of lights in his left eye intermittently since yesterday had some dizziness and imbalance. -- possible Acute CVA -- Brain MRI: 1. Multiple punctate foci of restricted diffusion within right parietal and occipital lobes also shows high T2 FLAIR signal and no evidence of enhancement after intravenous contrast administration. Differential diagnosis include embolic phenomena. Neoplastic etiology is less likely. Please correlate above- mentioned findings with history of cardiac/vascular abnormality and atherosclerosis. Findings will be sent to the patient's unit. 2. Prominence of bilateral ventricles is seen without significant parenchymal atrophy which might be representing hydrocephalus. CT Angio head and neck: IMPRESSION: 1. 60% luminal narrowing of the proximal to mid basilar artery. 2. Atherosclerosis of the supraclinoid segments of the internal carotid arteries bilaterally results in approximately 50% stenosis on the right. 3. No aneurysm, dissection or arterial occlusion. 1. Atherosclerotic involvement of the bilateral internal carotid arteries with above 50% stenosis within cavernosal portion of the right internal carotid artery. Report will be sent to the emergency Department. 2. Left predominant vertebral circulation. Diffuse narrowing of the right vertebral artery without definite occlusion. 3. Mild prominence of esophageal wall. Please correlate above-mentioned findings with clinical presentation and prior history of esophageal abnormalities. -- Echo: pending playground monitor: sinus rhyhthm -- Aspirin, Plavix started Neuro consulted may need outpatient Zio patch if telemetry monitoring unrevealing 2. Hypertension -- permissive HTN in light of #1 3. DM 2, A1c 13, new diagnosis -- Insulin Lantus and ISS -- Pharm Glycemic Control DM Educator 4. Hypomagnesemia -- replaced 5. Deep venous thrombosis prophylaxis -- SCDs for now Disposition pending PT OT rodrigo anticipate d/c home when medically stable Admission and Anticipated Discharge Date Admission Date: May 31, 2021 Subjective ff up for stroke like symptoms, etc seen resting in bed, comfortable, in good spirits states he feels fine overall dizziness, L visual disturbance resolved no other focal neurologic symptoms no chest pain, dyspnea, palpitations, headache, dizziness, abdominal pain, n/v no fever/chills no other symptoms Review of Systems Review of Systems: all noted and negative except for above Physical Exam Physical Exam: General- oriented x 3, not in distress, speaks in sentences with no effort or accessory muscle use Head- atraumatic Eyes- PERRL, EOMI, anicteric ENT- oropharynx clear Neck- supple, no JVD, no adenopathy, no thyromegaly; carotids +2/2, no bruits appreciated Lungs- clear to auscultation bilaterally, no rales/wheezes Heart- normal rate, regular rhythm; no murmur, no gallop, no rub appreciated Abdomen- normal bowel sounds, nondistended, soft, nontender, no masses or hepatosplenomegaly Extremities- no pretibial edema, no calf tenderness; peripheral pulses intact Neuro- alert, oriented x 3; CN 2-12 grossly intact; motor 5/5 bilaterally;sensation 100% on all extremities; no other gross focal neurologic deficits Skin- warm & dry Results & Data Results & Data ([facility]) Vital Signs (Past 12 Hours) Vital Signs Temp Pulse Pulse Resp BP Pulse Ox Pulse Ox 06/01/21 11:10 36.9 C 96 H 20 130/84 92 06/01/21 07:54 36.7 C 87 20 138/85 96 06/01/21 07:42 82 06/01/21 03:28 104 H 06/01/21 02:57 36.8 C 105 H 18 143/64 H 93 06/01/21 02:11 37 C 102 H 18 157/102 H 91 06/01/21 00:56 91 all noted and reviewed including below
[2021-06-01] MEDS ORDERED: CLOPIDOGREL BISULFATE 75 MG TAB PO ONE (16:41)
--- NOTE | 2021-06-01 17:39 | Electrocardiogram Report ---
Test Reason : Blood Pressure : / mmHG Vent. Rate : 113 BPM Atrial Rate : 113 BPM P-R Int : 148 ms QRS Dur : 078 ms QT Int : 318 ms P-R-T Axes : 032 016 032 degrees QTc Int : 436 ms Poor data quality, interpretation may be adversely affected Sinus tachycardia Otherwise normal ECG No previous ECGs available Confirmed by Jacinto Lee ([id number]) on 06/01/2021 5:38:49 PM Referred By: REFERRED SELF Confirmed By:Paulo Lee
[2021-06-02] MEDS: INSULIN ASPART 100 UNITS/ML 3 ML PEN SC SCH ×5 (01:07→17:39)
[2021-06-02 07:23] LABS: Basophils # (auto) 0.02 K/uL (0-0.2); Basophils % (auto) 0.2 %; Eosinophils # (auto) 0.21 K/uL (0-0.5); Eosinophils % (auto) 2.5 %; Hematocrit (blood only) 42.2 % (42-52); Hemoglobin 15.3 g/dL (14.0-18.0); Immature Granulocytes # (auto) 0.03 K/uL (0.00-0.02); Immature Granulocytes % (auto) 0.4 %; Lymphocytes # (auto) 2.67 K/uL (1.2-3.4); Lymphocytes % (auto) 31.5 %; Mean Corpuscular Hemoglobin 31.2 pg (25-34); Mean Corpuscular Hgb Conc 36.3 g/dL (32-36); Mean Corpuscular Volume 86.1 fL (80-100); Mean Platelet Volume 9.4 fL (7.4-10.4); Monocytes # (auto) 0.63 K/uL (0.11-0.59); Monocytes % (auto) 7.4 %; Neutrophils # (auto) 4.91 K/uL (1.4-6.5); Platelet Count 271 K/uL (130-400); RDW Coefficient of Variation 12.3 % (11.5-14.5); RDW Standard Deviation 39.1 fL (36.4-46.3); White Blood Count 8.47 K/uL (4.8-10.8)
[2021-06-02] MEDS ORDERED: GLUCOSE 40% GEL 15 GM TUBE PO PRN (07:30)
[2021-06-02] MEDS ORDERED: CARBOHYDRATES FOR HYPOGLYCEMIA PO PRN (07:30)
[2021-06-02] MEDS ORDERED: GLUCOSE 10 TABS/TUBE PO PRN (07:30)
[2021-06-02] MEDS ORDERED: GLUCAGON FOR INJ 1 MG VIAL IM PRN (07:30)
[2021-06-02] MEDS ORDERED: DEXTROSE 50% 50 ML SYRINGE IV PRN (07:30)
[2021-06-02 07:49] LABS: BUN Creatinine Ratio 18.3 (10-20); Calcium 8.5 mg/dl (8.5-10.1); Creatinine Clr Calc Pharmacy 114.5 ml/min; Est GFR (Non-African American) 102.7 ml/min; Potassium 3.7 mmol/L (3.5-5.1)
[2021-06-02] MEDS: ATORVASTATIN 40 MG TAB PO SCH (08:24)
[2021-06-02] MEDS: ASPIRIN 81 MG ECTAB PO SCH (08:24)
[2021-06-02] MEDS ORDERED: CLOPIDOGREL BISULFATE 75 MG TAB PO SCH (09:00)
[2021-06-02] MEDS ORDERED: INSULIN GLARGINE SOLOSTAR 100 UNITS/ML 3 ML PEN SC SCH (09:00)
--- NOTE | 2021-06-02 09:39 | Pharmacy Report ---
Pharmacy Glycemic Short Note 2 - Date of Service June 02, 2021 - Glycemic Short BSG Results (Last 24 hours): 06/01/21 06/01/21 06/01/21 11:31 16:33 20:17 Glucose POC Glucose 245 H 206 H 176 H 06/02/21 06/02/21 06/02/21 01:02 04:22 06:49 Glucose 182 H POC Glucose 200 H 209 H 06/02/21 07:42 Glucose POC Glucose 193 H OUTPATIENT ANTIDIABETIC REGIMEN: * N/a * HbA1c = 13.2% on 06/01/21 ASSESSMENT: 06/02: * Cristopher received a total of 56 units of insulin yesterday (25 basal + 31 bolus) * BSGs were all above goal: [phone] mg/dL * Fasting BSG remained above goal at 193 mg/dL this AM * Will increase Lantus by 40% today (0.4 units/kg) * Patient did not correct well overnight so will tighten Novolog parameters as well 06/01: * 60yo male with new diagnosis of DMT2 per A1c > 6.5% * Since A1c > 10% patient will need to dc on insulin * Sustained hyperglycemia overnight secondary to new diabetes diagnosis. Will initiate moderate stress weight based SQ basal bolus insulin regimen and titrate based on BSG trends. PLAN FOR INPATIENT GLYCEMIC CONTROL: * Basal insulin - increased * Lantus 35 units (0.4 units/kg) SQ x 1 dose this AM then titrate to achieve goal AM fasting BSG <130 mg/dl * Will try to keep basal insulin dosing once daily to transition to outpatient once daily dosing * Bolus insulin - tightened * NovoLog per scale ACHS or Q6hrs while NPO * Goal Range: Low 110 mg/dL - High 140 mg/dL * Correction Factor: 15 mg/dL/unit * Nutritional / Prandial insulin per carb ratio of 1 unit per 5 grams CHO consumed PLAN FOR DISCHARGE: * HbA1c = 13.2 % on 05/30/21 * Goal HbA1c = <7 % based on age and comorbidities * HbA1c is greater than or equal to 10% --> consider triple therapy with metformin + basal insulin + (GLP1-RA OR prandial insulin). May need to continue additional antidiabetic agent based on patient specific factors (efficacy, hypo risk, weight gain/loss, side effects, cost) * Metformin should be started at the time type 2 diabetes is diagnosed unless there are contraindications. Metformin is effective and safe, is inexpensive, and may reduce risk of cardiovascular events and . * B12 supplementation may be necessary with mcfp metformin use * Recommend starting: Metformin XR 500mg PO daily with evening meal. Typically the XR formulation of metformin is better tolerated than the immediate release formulation. Continue to titrate metformin dosing upwards as recommended. Dosage increases should be made in increments of 500 mg weekly, up to 2,000 mg/day PO, given in divided doses. Doses above 2000 mg/day may be better tolerated if divided and given 3 times per day with meals. Max: 2,550 mg/day PO, in divided doses * Basal insulin: * Recommend starting: Lantus/Basaglar 35 units SC once daily in the morning. Basal insulin dose should be increased by 5 units every 3 days until fasting blood glucose is less than 130 mg/dL. Do not recommend prandial in sulin coverage at this time. * GPL1RA: * Recommend starting: Ozempic 0.25 mg SC once weekly. Ozempic should be titrated to achieve glycemic control. May increase to 0.5 mg after 4 weeks. If further titration needed, may increase to MAX dose of 1 mg after 4 weeks of 0.5 mg. * If Ozempic is not covered, may consider once weekly Trulicity or once daily Victoza per patient preference. * Support Patient Self-Management * Healthy Lifestyle (diet, exercise, and smoking cessation) * Disease self-management (SMBG) * Prevention of complications (BP, Lipid goals, Immunizations) * Consider outpatient Diabetes Self-Management Education & Support
[2021-06-02] MEDS ORDERED: STROKE PATIENT DISCHARGE STA (16:06)
--- NOTE | 2021-06-02 16:12 | Pharmacy Report ---
Pharmacist Stroke Counseling - Date of Service June 02, 2021 - Scope: Pharmacy has been consulted to provide medication discharge counseling for this patient admitted with [ischemic stroke] [hemorrhagic stroke] [transient ischemic attack] as per the Pharmacist Discharge Counseling for Stroke Patients Coleen col. - Medications on Discharge: New Rx's Medication Instructions Recorded aspirin 81 mg tablet,delayed 81 mg PO QAM #30 tab 06/02/21 release atorvastatin 40 mg tablet 40 mg PO QAM #30 tab 06/02/21 clopidogrel 75 mg tablet 75 mg PO QAM #30 tab 06/02/21 insulin glargine 100 unit/mL (3 35 unit SC DAILY 30 Days #10.5 ml 06/02/21 mL) subcutaneous pen (Lantus Solostar U-100 Insulin) metformin 500 mg tablet,extended 500 mg PO DAILY #30 tab 06/02/21 release 24 hr - Action: The above medications, specifically ones for stroke treatment/prophylaxis, have been reviewed in detail with the patient and/or patient financial services sales representative(s) prior to discharge. This includes indication, common adverse reactions, drug interactions, and medication administration. Medication counseling has been employed using the teach-back method to ensure understanding. - Outcome: The patient and/or patient financial services sales representative(s) have demonstrated understanding of the medications. Additional comments: - Reviewed dosing, administration and common side effects for aspirin, plavix and atorvastatin - Patient understands that he is to take aspirin + plavix for 21 days, then STOP plavix and continue aspirin lifelong (unless otherwise specified by outpatient provider/neurologist) - Stressed the importance of notifying providers that he takes antiplatelet medications, especially if he were to have a procedure in the future Thank you for allowing pharmacy to be involved in the care of this patient. Please call [phone] with any additional questions
--- NOTE | 2021-06-02 17:06 | Hospitalist Progress Note ---
Date of Service June 02, 2021 Assessment & Plan (1) Stroke-like symptoms: Plan: ASSESSMENT AND PLAN: This is a 60-year-old male who presents with stroke like symptoms. 1. Acute CVA -- presented with symptoms with flashing of lights in his left eye intermittently with dizziness and imbalance. -- Brain MRI: 1. Multiple punctate foci of restricted diffusion within right parietal and occipital lobes also shows high T2 FLAIR signal and no evidence of enhancement after intravenous contrast administration. Differential diagnosis include embolic phenomena. Neoplastic etiology is less likely. Please correlate above- mentioned findings with history of cardiac/vascular abnormality and atherosclerosis. Findings will be sent to the patient's unit. 2. Prominence of bilateral ventricles is seen without significant parenchymal atrophy which might be representing hydrocephalus. CT Angio head and neck: IMPRESSION: 1. 60% luminal narrowing of the proximal to mid basilar artery. 2. Atherosclerosis of the supraclinoid segments of the internal carotid arteries bilaterally results in approximately 50% stenosis on the right. 3. No aneurysm, dissection or arterial occlusion. 1. Atherosclerotic involvement of the bilateral internal carotid arteries with above 50% stenosis within cavernosal portion of the right internal carotid artery. Report will be sent to the emergency Department. 2. Left predominant vertebral circulation. Diffuse narrowing of the right vertebral artery without definite occlusion. 3. Mild prominence of esophageal wall. Please correlate above-mentioned findings with clinical presentation and prior history of esophageal abnormalities. -- Echo: EF 55-60%, no segmental wall motion abnormalities, gr 1 diastolic dysfunction, no significant valvular pathology equipment monitor phototypesetting: sinus rhythm -- Neurologist consulted- Dr. Dallas recommend Aspirin, Plavix: ff up in 4 weeks at Neuro clinic patient needs Zio patch monitor placement to r/o underlying a fib PT/OT recommends discharge to home 2. Hypertension -- stable monitor as outpatient 3. DM 2, A1c 13, new diagnosis -- Insulin Lantus and ISS given -- Pharm Glycemic Control DM Educator -- discharge plan: Lantus 35 units in AM Metformin ER 500mg daily with evening meal consider Ozempic 0.25mg SC once weekly 4. Hypomagnesemia -- replaced 5. Deep venous thrombosis prophylaxis -- SCDs for now Disposition d/c home ff up with PCP in 1 week ff up with Neuro in 4 weeks Zio patch monitor placement needed Admission and Anticipated Discharge Date Admission Date: May 31, 2021 Subjective ff up for acute CVA, DM 2 seen resting in bed, comfortable in good spirits states he feels better overall dizziness, visual disturbance resolved no other new neurologic deficits no headache, chest pain, palpitations, abdominal pain, nausea/vomiting states he is comfortable with the Insulin pen administration no other symptoms states he is ready and would like to be discharged today Review of Systems Review of Systems: all noted and negative except for above Physical Exam Physical Exam: General- oriented x 3, not in distress, speaks in sentences with no effort or accessory muscle use Eyes- anicteric Neck- no JVD Lungs- clear breath sounds bilaterally, no rales/wheezes Heart- normal rate, regular rhythm; no murmurs Abdomen- normal bowel sounds, nondistended, soft, nontender Extremities- no pretibial edema, no calf tenderness Neuro- alert, oriented x 3; no gross focal neurologic deficits Skin- warm & dry Results & Data Results & Data ([facility]) Vital Signs (Past 12 Hours) Vital Signs Temp Pulse Pulse Resp BP Pulse Ox Pulse Ox 06/02/21 15:48 36.4 C L 103 H 20 134/85 96 06/02/21 15:34 105 H 06/02/21 15:21 36.4 C L 103 H 20 134/85 96 06/02/21 11:54 37.0 C 85 17 128/86 94 06/02/21 08:54 94 06/02/21 07:21 37.0 C 85 16 94 06/02/21 07:17 88 all noted and reviewed including below
--- NOTE | 2021-06-02 17:07 | Hospitalist Progress Note ---
Date of Service June 02, 2021 delayed entry date of service noted above Assessment & Plan (1) Stroke-like symptoms: Plan: ASSESSMENT AND PLAN: This is a 60-year-old male who presents with stroke like symptoms. 1. Acute CVA -- presented with symptoms with flashing of lights in his left eye intermittently with dizziness and imbalance. -- Brain MRI: 1. Multiple punctate foci of restricted diffusion within right parietal and occipital lobes also shows high T2 FLAIR signal and no evidence of enhancement after intravenous contrast administration. Differential diagnosis include embolic phenomena. Neoplastic etiology is less likely. Please correlate above- mentioned findings with history of cardiac/vascular abnormality and atherosclerosis. Findings will be sent to the patient's unit. 2. Prominence of bilateral ventricles is seen without significant parenchymal atrophy which might be representing hydrocephalus. CT Angio head and neck: IMPRESSION: 1. 60% luminal narrowing of the proximal to mid basilar artery. 2. Atherosclerosis of the supraclinoid segments of the internal carotid arteries bilaterally results in approximately 50% stenosis on the right. 3. No aneurysm, dissection or arterial occlusion. 1. Atherosclerotic involvement of the bilateral internal carotid arteries with above 50% stenosis within cavernosal portion of the right internal carotid artery. Report will be sent to the emergency Department. 2. Left predominant vertebral circulation. Diffuse narrowing of the right vertebral artery without definite occlusion. 3. Mild prominence of esophageal wall. Please correlate above-mentioned findings with clinical presentation and prior history of esophageal abnormalities. -- Echo: EF 55-60%, no segmental wall motion abnormalities, gr 1 diastolic dysfunction, no significant valvular pathology director of business development: sinus rhythm -- Neurologist consulted- Dr. Dallas recommend Aspirin, Plavix: ff up in 4 weeks at Neuro clinic patient needs Zio patch monitor placement to r/o underlying a fib PT/OT recommends discharge to home 2. Hypertension -- stable monitor as outpatient 3. DM 2, A1c 13, new diagnosis -- Insulin Lantus and ISS given -- Pharm Glycemic Control DM Educator -- discharge plan: Lantus 35 units in AM Metformin ER 500mg daily with evening meal consider Ozempic 0.25mg SC once weekly 4. Hypomagnesemia -- replaced 5. Deep venous thrombosis prophylaxis -- SCDs for now Disposition d/c home ff up with PCP in 1 week ff up with Neuro in 4 weeks Zio patch monitor placement needed Admission and Anticipated Discharge Date Admission Date: May 31, 2021 Subjective ff up for acute cva, etc seen resting in bed, comfortable states he feels fine overall dizziness, and visual Results & Data Results & Data ([facility]) Vital Signs (Past 12 Hours) Vital Signs Temp Pulse Pulse Resp BP Pulse Ox Pulse Ox 06/02/21 15:48 36.4 C L 103 H 20 134/85 96 06/02/21 15:34 105 H 06/02/21 15:21 36.4 C L 103 H 20 134/85 96 06/02/21 11:54 37.0 C 85 17 128/86 94 06/02/21 08:54 94 06/02/21 07:21 37.0 C 85 16 94 06/02/21 07:17 88
--- NOTE | 2021-06-05 13:54 | Discharge Summary ---
Date of Service June 05, 2021 Admission HPI Per Admitting Provider HISTORY OF PRESENT ILLNESS: This is a 60-year-old male with no significant past medical history, did not see doctors for a long time, who lives alone, presents with ongoing dizziness and also light flashing in his left eye. He says he was disoriented, dizzy on and his boss has to send him home, and yesterday afternoon for a couple of hours, he felt like light flashing in his left eye and again happened that episode for sometime today too.Since some time today he also feeling little imbalance and dizziness, thus prompted him to come to the ER. Currently, resting comfortably, hemodynamically stable. Denies any headache, denies any blurred visions or double visions, no earache, no runny nose, no sore throat. Has occasional cough since last 1 week, attributes it to his allergies. Appetite is okay. He is swallowing okay. No chest pain, no shortness of breath, no cough, no abdominal pain, normal bowel and bladder movements. Did not see bloody stools or black stools. No hematuria or burning micturition, no swelling in the legs, no rash.Didn't had Covid vaccine. Admission Exam Per Admitting Provider GENERAL: The patient is obese, not in acute distress. VITAL SIGNS: Temperature 36.4, pulse 105, respiratory rate 22, blood pressure 159/100, oxygen 95% on room air. HEENT: Pupils equal, round and reactive to light. Extraocular muscles intact. Oral mucosa moist. NECK: No JVD or neck masses. HEART: S1 and S2 heard. Regular rate and rhythm. No murmur, no gallop. RESPIRATORY SYSTEM: Normal AP diameter. No accessory muscle use. No wheezing, no crackles. ABDOMEN: Soft, bowel sounds present, nontender, no distention. CENTRAL NERVOUS SYSTEM: Cranial nerves II-XII grossly intact. No facial droop. Speech is clear. Power 5/5 in all extremities. Sensation is intact. Coordination of movements normal. No pronator drift. Gait is okay. EXTREMITIES: No edema, no erythema. Principal Diagnosis ACUTE CEREBROVASCULAR ACCIDENT DIABETES TYPE 2, NEW DIAGNOSIS Discharge Exam General- oriented x 3, not in distress, speaks in sentences with no effort or accessory muscle use Eyes- anicteric Neck- no JVD Lungs- clear breath sounds bilaterally, no rales/wheezes Heart- normal rate, regular rhythm; no murmurs Abdomen- normal bowel sounds, nondistended, soft, nontender Extremities- no pretibial edema, no calf tenderness Neuro- alert, oriented x 3; no gross focal neurologic deficits Skin- warm & dry Discharge Data Allergies Allergy/AdvReac Type Severity Reaction Status Date / Time bee venom protein (honey bee) Allergy Severe Hives Verified 05/31/21 20:01 Consultations 05/31/21 22:29 ED Decision to Admit Stat 06/01/21 08:00 Consult Neurology Routine Ordered Studies 05/31/21 19:59 CT angio head w con Urgent Atherosclerosis of the distal internal carotid arteries results in approximately 50% luminal narrowing of the super clinoid right ICA and mild stenosis of the supraclinoid left ICA. The bilateral middle and anterior cerebral arteries are patent. Dominant left vertebral artery. The imaged distal right vertebral artery is diminutive in size. Long segment luminal narrowing of the proximal and mid basilar artery measures up to approximately 60%. origin of the right posterior cerebral artery. The posterior cerebral arteries are patent. Cerebral venous sinuses are patent. No aneurysm, dissection, high-grade stenosis or arterial occlusion. There is no abnormal intracranial enhancement. A small acute infarcts of the right cerebral hemisphere seen on the brain MRI are same day are not appreciable by CT technique. No calvarial fracture. Polypoid mucosal thickening of the right greater than left maxillary sinuses. Mastoid air cells are clear. IMPRESSION: 1. 60% luminal narrowing of the proximal to mid basilar artery. 2. Atherosclerosis of the supraclinoid segments of the internal carotid arteries bilaterally results in approximately 50% stenosis on the right. 3. No aneurysm, dissection or arterial occlusion. CT angio neck with con Urgent Findings: Partial calcified plaques is seen within bilateral carotid bulbs without significant stenosis. Partially calcified plaque is seen within cavernosal portion of the right internal carotid artery with approximately 50% stenosis (6/374). Also there is luminal irregularity and 50-69% stenosis of the cavernous portion of the right internal carotid artery (6-378 and 600/23). Partial calcified plaques are seen within cavernosal portion of the left internal carotid artery with approximately 50% stenosis (6/380). There is left predominant vertebral flow. Left vertebral artery is patent without hemodynamically significant stenosis. Diffuse narrowing of the right vertebral artery is seen. No definite focal occlusion is demonstrated. No dissection is seen. Limited evaluation of lung apices shows no infiltrates or consolidative lesions. Prominent azygos lobe is seen. Incidental findings of patulous esophagus with mild diffuse thickening of its wall. IMPRESSION: 1. Atherosclerotic involvement of the bilateral internal carotid arteries with above 50% stenosis within cavernosal portion of the right internal carotid artery. Report will be sent to the emergency Department. 2. Left predominant vertebral circulation. Diffuse narrowing of the right vertebral artery without definite occlusion. 3. Mild prominence of esophageal wall. Please correlate above-mentioned findings with clinical presentation and prior history of esophageal abnormalities. ACT 112: Negative or not required by law. CT head/brain wo con Urgent No acute intracranial hemorrhage, midline shift, intracranial mass, hydrocephalus, territorial ischemia or abnormal extra-axial collection. Minimal white matter hypodensities may reflect chronic microvascular ischemic disease. The calvarium is intact. The paranasal sinuses, mastoid air cells, and middle ear cavities are clear. IMPRESSION: 1. No acute intracranial abnormality. 2. No acute or subacute infarct identified by CT. 06/01/21 00:56 MR brain wo/w con Urgent FINDINGS: Sagittal T1, axial diffusion, proton density and T2 weighted axial, coronal FLAIR, and pre and post axial T1-weighted images were acquired. These were supplemented with post gadolinium coronal T1 weighted images. No intra or extra-axial mass lesions are visualized. Multiple punctate areas of restricted diffusion within periventricular and subcortical white matter as well as cortex of the right occipital and parietal lobe are seen, some of this areas shows increased T2 FLAIR signal and no evidence of abnormal enhancement. Mild dilatation of the ventricles are seen without significant parenchymal atrophy and might represent hydrocephalus. Proton density T2-weighted and FLAIR images reveal scattered foci of increased T2 signal within the white matter, likely on a small vessel basis. There are no abnormal flow voids. IMPRESSION: 1. Multiple punctate foci of restricted diffusion within right parietal and occipital lobes also shows high T2 FLAIR signal and no evidence of enhancement after intravenous contrast administration. Differential diagnosis include embolic phenomena. Neoplastic etiology is less likely. Please correlate above- mentioned findings with history of cardiac/vascular abnormality and atherosclerosis. Findings will be sent to the patient's unit. 2. Prominence of bilateral ventricles is seen without significant parenchymal atrophy which might be representing hydrocephalus. ACT 112: Negative or not required by law. Hospital Course (1) Stroke-like symptoms: ASSESSMENT AND PLAN: This is a 60-year-old male who presents with stroke like symptoms. 1. Acute CVA -- presented with symptoms with flashing of lights in his left eye intermittently with dizziness and imbalance. -- Brain MRI: 1. Multiple punctate foci of restricted diffusion within right parietal and occipital lobes also shows high T2 FLAIR signal and no evidence of enhancement after intravenous contrast administration. Differential diagnosis include embolic phenomena. Neoplastic etiology is less likely. Please correlate above- mentioned findings with history of cardiac/vascular abnormality and atherosclerosis. Findings will be sent to the patient's unit. 2. Prominence of bilateral ventricles is seen without significant parenchymal atrophy which might be representing hydrocephalus. CT Angio head and neck: IMPRESSION: 1. 60% luminal narrowing of the proximal to mid basilar artery. 2. Atherosclerosis of the supraclinoid segments of the internal carotid arteries bilaterally results in approximately 50% stenosis on the right. 3. No aneurysm, dissection or arterial occlusion. 1. Atherosclerotic involvement of the bilateral internal carotid arteries with above 50% stenosis within cavernosal portion of the right internal carotid artery. Report will be sent to the emergency Department. 2. Left predominant vertebral circulation. Diffuse narrowing of the right vertebral artery without definite occlusion. 3. Mild prominence of esophageal wall. Please correlate above-mentioned findings with clinical presentation and prior history of esophageal abnormalities. 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 Taylor recommend Aspirin, Plavix, Atorvastatin: ff up in 4 weeks at Neuro clinic patient needs Zio patch monitor placement to r/o underlying a fib PT/OT recommends discharge to home 2. Hypertension -- stable monitor as outpatient 3. DM 2, A1c 13, new diagnosis -- Insulin Lantus and ISS given -- Pharm Glycemic Control DM Educator -- discharge plan: Lantus 35 units in AM Metformin ER 500mg daily with evening meal consider Ozempic 0.25mg SC once weekly 4. Hypomagnesemia -- replaced 5. Deep venous thrombosis prophylaxis -- SCDs for now Disposition d/c home ff up with PCP in 1 week ff up with Neuro in 4 weeks Zio patch monitor placement needed Total Time Total Time Spent Total Time Spent (In Minutes): > 30 minutes Discharge Plan Discharge Items Patient Disposition: Home - Home Health Services Reason For Visit: STROKE-LIKE SYMPTOMS Discharge Diagnosis: ACUTE STROKE DIABETES MELLITUS TYPE 2 Activity: Resume your previous activity Activity Comment: RESUME ACTIVITY GRADUALLY TOLERATED Lifting: Wait until after follow-up appointment Exercise/Sports: Wait until after follow-up appointment Driving/Machine Use: NO DRIVING UNTIL RE-EVALUATED AND ALLOWED BY PRIMARY CARE PHYSICIAN Non-emergency contact: Primary Care Provider Call non-emergency contact if: you have any medication questions, your symptoms worsen, your pain is not controlled, your pain is worsening, your pain is unusual for you, your pain is concerning for you and you have a fever Follow-up/Referrals: Duglas Nieves DO [Physician] - 06/09/21 10:30 am ([facility] - Primary Care [address], [place] [address] ) Johnny Taylor MD [Physician] - Diet: Carb Consistent or DM2 and Heart Healthy Addtl Attending Provider Instructions: PLEASE REVIEW YOUR NEW MEDICATION LIST AND FOLLOW INSTRUCTIONS CAREFULLY. YOUR NEW MEDICATIONS INCLUDE: INSULIN LANTUS (GLARGINE) FOR DIABETES METFORMIN FOR DIABETES ASPIRIN, PLAVIX- ANTIPLATELETS FOR STROKE PREVENTION ATORVASTATIN FOR HIGH CHOLESTEROL LEVEL FOLLOW UP WITH PRIMARY CARE PHYSICIAN IN 1 WEEK OUTLINE ABOVE. FOLLOW UP WITH NEUROLOGIST DR. TAYLOR IN 1 MONTH. PLEASE CALL HIS OFFICE FOR AN APPOINTMENT. CONTACT INFORMATION NOTED ABOVE. Who to Call and When: Medical Emergencies: Call 911 immediately if you experience any of the following warning signs and symptoms of Stroke: Sudden numbness or weakness of the face, arm or leg, especially on one side of the body Sudden confusion, trouble speaking or understanding Sudden trouble seeing in one or both eyes Sudden trouble walking, dizziness, loss of balance or coordination Sudden severe headache with no cause Do not delay calling 911 if you experience any warning signs or symptoms of a stroke. Delay in seeking medical attention may affect what treatments can be given to you. Risk Factors for Stroke: You can reduce your chances of stroke by working with your medical provider to adopt a healthy lifestyle. Some specific ways to lower your chance of stroke are: If you are a smoker, now is the time to stop smoking cigarettes If you are diabetic, improve the control of your blood sugars Avoid excessive amounts of alcohol Control high blood pressure Lose weight if you are overweight Be sure to lead an active lifestyle Eat a healthy diet low in salt, cholesterol and fat You should know about other risk factors for stroke that you are unable to control. These include: Age 55 years or older Male gender Certain racial groups: , or / Family History of Stroke, Mini stroke or Heart Attack Sickle Cell Disease Follow Up: It is important for you to keep your follow up appointments with your medical provider. . Pending Studies at Discharge: No Stand-Alone Forms: Medications to Prevent Stroke, [facility], Smoking Cessation Medications and DC Order Prescriptions: New clopidogrel 75 mg Tablet 75 mg PO QAM Qty: 30 RF: 2 atorvastatin 40 mg Tablet 40 mg PO QAM Qty: 30 RF: 2 aspirin 81 mg Tablet,Delayed Release (Dr/Ec) 81 mg PO QAM Qty: 30 RF: 2 Lantus Solostar U-100 Insulin 100 unit/mL (3 mL) Insulin Pen 35 unit SC DAILY 30 Days Qty: 10.5 RF: 2 metformin 500 mg tablet extended release 24 hr 500 mg PO DAILY Qty: 30 RF: 2 Discharge Orders: Discharge Order (Routine); Ordered 06/02/21 Ordered By: Jesus Palomares Admission Data Admit Date/Time: 05/31/21 23:44 Attending Provider: Jesus Palomares Admit Provider: Shabbir Finley Primary Care Provider: PCP,NO Other Providers: Shabbir Finley ; Lucy Whitley ; Johnny Taylor ; Lucy Squires ; Joshua Parr ; Natalio Storm Other Interventions: Discharge Summary Assessment (RN) Last Done: 06/02/21 15:48
== END 2021-06-02 17:41 | disposition home or self-care (01) | DRG 66 ==
LOC: ED 19:26 → 2N 23:44 → SUATTDRO 23:44 → 2N 06-01 00:35